=== PATIENT | female | born 1955 | race Caucasian/White ===

== ENCOUNTER 2019-06-10 15:37 | Emergency (ER) | payer OTHER ==
[~2019-06-10] VITALS: Ht 162.6 cm; Wt 100.0 kg
[~2019-06-10 15:37] MED LIST: ALPR0.25 PO; AMLO10TA8 PO; ATOR40TA59 PO; DULOXETINE; FENO48TA3 PO; FRAGMIN; HYDR-2678 PO; ICOS1CAP PO; INSU100C4 SQ; INSU100I13 SQ; INSU100I17 SQ; INSU100I27 SQ; LEVO200T5 PO; LISI-130 PO; LISI-334 PO; LORA1TAB PO; METF10007 PO; METF500T16 PO; OMEP40CA45 PO; OXYC1TAB15 PO; OXYC1TAB7 PO; SERT25TA PO; ZOLP5TAB5 PO; [UNRECOGNIZED DRUG - OTHER]
--- NOTE | 2019-06-10 16:44 | PHYS DOC ---
Past Medical History Past Medical History: Cancer, Diabetes-Type II, High Cholesterol, Hypertension Additional Past Medical Histor: Breast Ca- Mets to Liver Past Surgical History: , Pacemaker, Tubal ligation Additional Past Surgical Histo: Bx mastectomy Smoking Status: Former Smoker Alcohol Use: None Drug Use: None Adult General Chief Complaint Chief Complaint: UPPER EXTREMITY SWELLING [facility] HPI Patient is a 63 year old female who presents with L arm swelling that has been worsening over the last week. The patient states that she has a history of breast cancer and had a mastectomy in 2006. Denies additional symptoms. Complete ROS were reviewed and found to be within normal limits, except as documented in the HPI Allergies Allergies Allergies Coded Allergies Type Severity Reaction Last Updated Verified No Known Drug Allergies 08/16/15 No Physical Exam Physical Exam Constitutional: Well developed, well nourished, no acute distress, non-toxic appearance. [] HENT: Normocephalic, atraumatic, bilateral external ears normal, oropharynx moist, no oral exudates, nose normal. [] Eyes: PERRLA, EOMI, conjunctiva normal, no discharge. [] Neck: Normal range of motion, no tenderness, supple, no stridor. [] Skin: Warm, dry, no erythema, no rash. [] Back: No tenderness, no CVA tenderness. [] Extremities: Edema and tenderness to L arm. Neurologic: Alert and oriented X 3, normal motor function, normal sensory function, no focal deficits noted. [] Psychologic: Affect normal, judgement normal, mood normal. [] Current Patient Data Vital Signs Vital Signs Date Time Temp Pulse Resp B/P (MAP) Pulse Ox O2 Delivery O2 Flow Rate FiO2 06/10/19 16:14 97.8 72 18 189/76 (113) 99 Room Air 97.8 EKG EKG [] Radiology/Procedures Radiology/Procedures [] Course & Med Decision Making Course & Med Decision Making Pertinent Labs and Imaging studies reviewed. (See chart for details) Will get ultrasound of L arm. Ultrasound is negative for DVT. Will d/c home. Dragon Disclaimer Dragon Disclaimer This electronic medical record was generated, in whole or in part, using a voice recognition dictation system. Departure Departure Impression: Primary Impression: Lymphadenopathy Disposition: HOME, SELF-CARE Condition: STABLE Referrals: NO PCP (PCP) Additional Instructions: Thank you for visiting [facility]. We appreciate you trusting us with your care. If any additional problems come up don't hesitate to return to visit us. Please follow up with your primary care provider so they can plan additional care if needed and know about the problem that you had. If symptoms worsen come back to the Emergency Department. Any concerning symptoms that start such as chest pain, shortness of air, weakness or numbness on one side of the body, running high fevers or any other concerning symptoms return to the ER. JARETH SANABRIA APRN Jun 10, 2019 16:44
[2019-06-10 18:49] VITALS: BP 167/72
--- NOTE | 2019-06-10 18:52 | RAD ---
EXAM: Left upper extremity venous Doppler sonogram. HISTORY: Pain and swelling. TECHNIQUE: Walsh scale and color Doppler sonographic evaluation of the left upper extremity veins with spectral waveform analysis was performed. FINDINGS: There is normal color flow, normal compressibility and there are normal spectral waveforms in the left upper extremity veins. IMPRESSION: No Doppler evidence of upper extremity venous thrombosis. Electronically signed by: Roselia Sidhu MD (06/10/2019 5:05 PM) [facility] [place]
== END 2019-06-10 18:56 | disposition home or self-care (01) ==
LOC: ER 15:37
DX: R59.1 Generalized enlarged lymph nodes (principal); M79.602 Pain in left arm; E11.9 Type 2 diabetes mellitus without complications; F17.200 Nicotine dependence, unspecified, uncomplicated; E78.00 Pure hypercholesterolemia, unspecified; I10 Essential (primary) hypertension; Z98.51 Tubal ligation status; Z95.0 Presence of cardiac pacemaker; Z85.3 Personal history of malignant neoplasm of breast; Z98.890 Other specified postprocedural states
CPT/HCPCS: 93971; 99284